=== PATIENT | male | born 1975 | race African-American/Black ===

== ENCOUNTER 2017-03-28 07:00 | Emergency (ER) | payer SELFPAY ==
[~2017-03-28] VITALS: Ht 170.2 cm; Wt 99.8 kg
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
[2017-03-28] MEDS ORDERED: PHEN60TA PO (07:37)
[2017-03-28] MEDS ORDERED: METH-37 PO (07:37)
[2017-03-28 08:09] LABS: PHENOBARB 15.7 mcg/mL (15.0-40.0)
[2017-03-28 10:11] VITALS: BP 120/55
== END 2017-03-28 10:19 | disposition home or self-care (01) ==
LOC: ER 07:00
DX: R56.9 Unspecified convulsions (principal)
CPT/HCPCS: 36415; 80184; 99284